=== PATIENT | female | born 1930 | race Caucasian/White ===

== ENCOUNTER 2016-06-01 14:22 | Inpatient (IN) | payer MEDICARE, OTHER ==
[~2016-06-01] VITALS: Ht 157.5 cm; Wt 69.4 kg
[2016-06-01] MEDS ORDERED: NITROGLYCERIN 2% OINT 1 INCH PKT TOPICAL ONE (16:25)
[2016-06-01] MEDS ORDERED: Furosemide 40 MG/4 ML VIAL ONE (16:25)
[2016-06-01] MEDS ORDERED: DUONEB INH ONE (16:39)
[2016-06-01] MEDS ORDERED: LEVOFLOXACIN 500 MG INJ IV ONE (17:46)
[2016-06-01] MEDS ORDERED: ACETAMINOPHEN 325 MG TAB ONE (18:22)
[2016-06-01 18:52] VITALS: BP_SYST 160; RESP 20; TEMP 97.9
[2016-06-01 18:53] VITALS: Ht 157.5 cm; Wt 69.4 kg
[2016-06-01] MEDS ORDERED: Flu Vaccine Quadrivalent 60 MCG/0.5 ML IM.VACC ONE (19:00)
[2016-06-01] MEDS ORDERED: PHARMACY TO DOSE LEVAQUIN IV SCH (19:55)
[2016-06-01] MEDS ORDERED: TRAZODONE 50 MG TAB PO SCH (21:49)
[2016-06-01] MEDS: TRAZODONE 50 MG TAB PO SCH (22:21)
[2016-06-01] MEDS: OXYCODONE/APAP 7.5/325 TAB PO PRN (22:22)
[2016-06-01 23:36] VITALS: BP_SYST 117; RESP 20; TEMP 98.1
[2016-06-02] MEDS: DUONEB INH SCH ×8 (00:50→23:54)
[2016-06-02 03:41] VITALS: BP_SYST 136; RESP 20; TEMP 97.6
[2016-06-02 07:21] VITALS: BP_SYST 150; RESP 18; TEMP 97.8
[2016-06-02] MEDS: OXYCODONE/APAP 7.5/325 TAB PO SCH (07:57)
[2016-06-02] MEDS ORDERED: TRAZODONE 50 MG TAB PO SCH (09:00)
[2016-06-02] MEDS ORDERED: Furosemide 40 MG/4 ML VIAL IV SCH (09:00)
[2016-06-02 10:57] VITALS: BP_SYST 112; RESP 18; TEMP 97.7
[2016-06-02] MEDS: AZITHROMYCIN 250 MG in SODIUM CHLORIDE 0.9% 250 ML IV SCH (12:39)
[2016-06-02 14:44] VITALS: BP_SYST 115; RESP 18; TEMP 98.4
[2016-06-02] MEDS: Furosemide 40 MG/4 ML VIAL IV SCH (16:52)
[2016-06-02] MEDS: CEFTRIAXONE 1 GM in SODIUM CHLORIDE 0.9% 50 ML IV SCH (16:53)
[2016-06-02] MEDS ORDERED: LEVOFLOXACIN 250 MG/50 ML 50 ML IV SCH (18:00)
[2016-06-02 19:12] VITALS: BP_SYST 124; RESP 18; TEMP 98.8
[2016-06-02] MEDS ORDERED: MELATONIN 10 MG PO SCH (21:00)
[2016-06-02] MEDS: Atorvastatin 20 MG TAB PO SCH (21:22)
[2016-06-02] MEDS: METOPROLOL XL 25 MG TAB PO SCH (21:22)
[2016-06-02] MEDS: ASPIRIN EC 81 MG TAB PO SCH (21:22)
[2016-06-02] MEDS: TRAZODONE 50 MG TAB PO SCH (21:22)
[2016-06-02] MEDS: Losartan 25 MG TAB PO SCH (21:22)
[2016-06-02] MEDS: BENZONATATE 100 MG CAP PO PRN (21:33)
[2016-06-03] VITALS (9 sets, daily range): BP systolic 106–146; RESP 16–24; TEMP 98.3–98.8
[2016-06-03] MEDS: DUONEB INH SCH ×5 (05:32→22:57)
[2016-06-03] MEDS: SODIUM CHLORIDE 0.9% FLUSH BAG 500 ML IV SCH (06:04)
[2016-06-03] MEDS ORDERED: MISSING DOSE XX ONE ×2 (08:50→12:45)
[2016-06-03] MEDS: ASPIRIN EC 81 MG TAB PO SCH (08:53)
[2016-06-03] MEDS: Losartan 25 MG TAB PO SCH (08:53)
[2016-06-03] MEDS: METOPROLOL XL 25 MG TAB PO SCH (08:53)
[2016-06-03] MEDS: OXYCODONE/APAP 7.5/325 TAB PO SCH (08:55)
[2016-06-03] MEDS: CEFTRIAXONE 1 GM in SODIUM CHLORIDE 0.9% 50 ML IV SCH (08:56)
[2016-06-03] MEDS: Furosemide 40 MG/4 ML VIAL IV SCH ×2 (08:57→17:42)
[2016-06-03] MEDS ORDERED: AZITHROMYCIN 500 MG in SODIUM CHLORIDE 0.9% 250 ML IV SCH (09:00)
[2016-06-03] MEDS: BENZONATATE 100 MG CAP PO PRN (10:28)
[2016-06-03] MEDS: AZITHROMYCIN 250 MG in SODIUM CHLORIDE 0.9% 250 ML IV SCH (10:28)
[2016-06-03] MEDS ORDERED: DOCUSATE SOD 100 MG CAP PO PRN (12:15)
[2016-06-03] MEDS: OXYCODONE/APAP 7.5/325 TAB PO PRN (15:07)
[2016-06-03] MEDS: SPIRONOLACTONE 25 MG TAB PO SCH (15:07)
[2016-06-03] MEDS: TRAZODONE 50 MG TAB PO SCH (20:10)
[2016-06-03] MEDS: Atorvastatin 20 MG TAB PO SCH (20:10)
[2016-06-04] VITALS (7 sets, daily range): BP systolic 97–132; RESP 18; TEMP 98.2–98.6
[2016-06-04] MEDS: Furosemide 40 MG/4 ML VIAL IV SCH ×3 (00:11→17:51)
[2016-06-04] MEDS: SODIUM CHLORIDE 0.9% FLUSH BAG 500 ML IV SCH (05:59)
[2016-06-04] MEDS: DUONEB INH SCH ×5 (07:06→22:43)
[2016-06-04] MEDS: CEFTRIAXONE 1 GM in SODIUM CHLORIDE 0.9% 50 ML IV SCH (08:43)
[2016-06-04] MEDS: METOPROLOL XL 25 MG TAB PO SCH (08:44)
[2016-06-04] MEDS: ASPIRIN EC 81 MG TAB PO SCH (08:44)
[2016-06-04] MEDS: Losartan 25 MG TAB PO SCH (08:44)
[2016-06-04] MEDS: SPIRONOLACTONE 25 MG TAB PO SCH (08:44)
[2016-06-04] MEDS: OXYCODONE/APAP 7.5/325 TAB PO SCH ×2 (09:00→09:54)
[2016-06-04] MEDS: AZITHROMYCIN 250 MG in SODIUM CHLORIDE 0.9% 250 ML IV SCH (09:44)
[2016-06-04] MEDS: IRON SUCROSE COMPLEX 400 MG in SODIUM CHLORIDE 0.9% 250 ML IV SCH (11:45)
[2016-06-04] MEDS: OXYCODONE/APAP 7.5/325 TAB PO PRN (15:31)
[2016-06-04] MEDS: Atorvastatin 20 MG TAB PO SCH (20:26)
[2016-06-04] MEDS: TRAZODONE 50 MG TAB PO SCH (20:26)
[2016-06-05] MEDS: DUONEB INH SCH ×6 (02:12→22:38)
[2016-06-05 05:00] VITALS: BP_SYST 111; RESP 18; TEMP 97.9
[2016-06-05] MEDS: SODIUM CHLORIDE 0.9% FLUSH BAG 500 ML IV SCH (05:08)
[2016-06-05] MEDS: Furosemide 40 MG/4 ML VIAL IV SCH ×3 (05:35→23:20)
[2016-06-05 07:17] VITALS: BP_SYST 130; RESP 20; TEMP 98.1
[2016-06-05] MEDS: CEFTRIAXONE 1 GM in SODIUM CHLORIDE 0.9% 50 ML IV SCH (10:19)
[2016-06-05] MEDS: BENZONATATE 100 MG CAP PO PRN (10:19)
[2016-06-05] MEDS: METOPROLOL XL 25 MG TAB PO SCH (10:20)
[2016-06-05] MEDS: OXYCODONE/APAP 7.5/325 TAB PO SCH (10:20)
[2016-06-05] MEDS: Losartan 25 MG TAB PO SCH (10:20)
[2016-06-05] MEDS: ASPIRIN EC 325 MG TAB PO SCH (10:22)
[2016-06-05] MEDS: SPIRONOLACTONE 25 MG TAB PO SCH (10:22)
[2016-06-05 10:59] VITALS: BP_SYST 136; RESP 20; TEMP 98.4
[2016-06-05] MEDS: AZITHROMYCIN 250 MG in SODIUM CHLORIDE 0.9% 250 ML IV SCH (11:32)
[2016-06-05] MEDS: NEB-BUDESONIDE 0.5 MG INH SCH ×2 (12:10→19:35)
[2016-06-05] MEDS: NEB-BROVANA 15 MCG/2 ML INH SCH ×2 (12:11→19:35)
[2016-06-05] MEDS ORDERED: BISACODYL EC 5 MG TAB PO PRN (12:15)
[2016-06-05] MEDS ORDERED: POLYETHYLENE GLYCOL 17 GM PACKET PO ONE (12:15)
[2016-06-05] MEDS: IRON SUCROSE COMPLEX 400 MG in SODIUM CHLORIDE 0.9% 250 ML IV SCH (12:49)
[2016-06-05] MEDS: DOCUSATE SOD 100 MG CAP PO SCH ×2 (13:31→20:39)
[2016-06-05 15:04] VITALS: BP_SYST 118; RESP 20; TEMP 98.3
[2016-06-05] MEDS: OXYCODONE/APAP 7.5/325 TAB PO PRN (17:34)
[2016-06-05 19:09] VITALS: BP_SYST 110; RESP 18; TEMP 98
[2016-06-05] MEDS: TRAZODONE 50 MG TAB PO SCH (20:40)
[2016-06-05] MEDS: Atorvastatin 20 MG TAB PO SCH (20:40)
[2016-06-05] MEDS: POLYETHYLENE GLYCOL 17 GM PACKET PO SCH (20:40)
[2016-06-05 22:49] VITALS: BP_SYST 122; RESP 20; TEMP 98.7
[2016-06-06] VITALS (8 sets, daily range): BP systolic 84–132; RESP 18–20; TEMP 97.2–98.6
[2016-06-06] MEDS: SODIUM CHLORIDE 0.9% FLUSH BAG 500 ML IV SCH (05:39)
[2016-06-06] MEDS: NEB-BROVANA 15 MCG/2 ML INH SCH ×2 (06:51→19:18)
[2016-06-06] MEDS: NEB-BUDESONIDE 0.5 MG INH SCH ×2 (06:51→19:18)
[2016-06-06] MEDS: DUONEB INH SCH ×5 (06:52→23:02)
[2016-06-06] MEDS ORDERED: MISSING DOSE XX ONE (09:00)
[2016-06-06] MEDS: METOPROLOL XL 25 MG TAB PO SCH (09:09)
[2016-06-06] MEDS: DOCUSATE SOD 100 MG CAP PO SCH ×2 (09:09→20:10)
[2016-06-06] MEDS: Losartan 25 MG TAB PO SCH (09:09)
[2016-06-06] MEDS: ASPIRIN EC 325 MG TAB PO SCH (09:09)
[2016-06-06] MEDS: SPIRONOLACTONE 25 MG TAB PO SCH (09:09)
[2016-06-06] MEDS: Furosemide 40 MG/4 ML VIAL IV SCH ×3 (09:10→23:17)
[2016-06-06] MEDS: CEFTRIAXONE 1 GM in SODIUM CHLORIDE 0.9% 50 ML IV SCH (09:10)
[2016-06-06] MEDS: OXYCODONE/APAP 7.5/325 TAB PO SCH (09:15)
[2016-06-06] MEDS: OXYCODONE/APAP 7.5/325 TAB PO PRN (20:09)
[2016-06-06] MEDS: POLYETHYLENE GLYCOL 17 GM PACKET PO SCH (20:10)
[2016-06-06] MEDS: TRAZODONE 50 MG TAB PO SCH (20:10)
[2016-06-06] MEDS: Atorvastatin 20 MG TAB PO SCH (20:10)
[2016-06-06] MEDS: BENZONATATE 100 MG CAP PO PRN (20:15)
[2016-06-07 02:32] VITALS: BP_SYST 112; RESP 20; TEMP 97.9
[2016-06-07] MEDS: SODIUM CHLORIDE 0.9% FLUSH BAG 500 ML IV SCH (04:31)
[2016-06-07 07:10] VITALS: BP_SYST 133; RESP 20; TEMP 98.3
[2016-06-07] MEDS: NEB-BROVANA 15 MCG/2 ML INH SCH ×2 (08:09→18:53)
[2016-06-07] MEDS: DUONEB INH SCH ×5 (08:09→22:43)
[2016-06-07] MEDS: NEB-BUDESONIDE 0.5 MG INH SCH ×2 (08:10→18:53)
[2016-06-07] MEDS: Furosemide 40 MG/4 ML VIAL IV SCH ×2 (09:32→17:05)
[2016-06-07] MEDS: CEFTRIAXONE 1 GM in SODIUM CHLORIDE 0.9% 50 ML IV SCH (09:33)
[2016-06-07] MEDS: OXYCODONE/APAP 7.5/325 TAB PO SCH (09:33)
[2016-06-07] MEDS: SPIRONOLACTONE 25 MG TAB PO SCH (09:34)
[2016-06-07] MEDS: DOCUSATE SOD 100 MG CAP PO SCH ×2 (09:34→19:54)
[2016-06-07] MEDS: METOPROLOL XL 25 MG TAB PO SCH (09:34)
[2016-06-07] MEDS: Losartan 25 MG TAB PO SCH (09:34)
[2016-06-07] MEDS: ASPIRIN EC 325 MG TAB PO SCH (09:34)
[2016-06-07 11:37] VITALS: BP_SYST 117; RESP 20; TEMP 98.5
[2016-06-07 15:20] VITALS: BP_SYST 102; RESP 20; TEMP 98.6
[2016-06-07 19:14] VITALS: BP_SYST 134; RESP 20; TEMP 98.6
[2016-06-07] MEDS: Atorvastatin 20 MG TAB PO SCH (19:54)
[2016-06-07] MEDS: TRAZODONE 50 MG TAB PO SCH (19:54)
[2016-06-07] MEDS: POLYETHYLENE GLYCOL 17 GM PACKET PO SCH (19:55)
[2016-06-07] MEDS: OXYCODONE/APAP 7.5/325 TAB PO PRN (19:55)
[2016-06-07 22:20] VITALS: BP_SYST 129; RESP 20; TEMP 98.4
[2016-06-08 03:15] VITALS: BP_SYST 122; RESP 20; TEMP 98.5
[2016-06-08] MEDS: SODIUM CHLORIDE 0.9% FLUSH BAG 500 ML IV SCH (04:41)
[2016-06-08] MEDS: NEB-BROVANA 15 MCG/2 ML INH SCH ×2 (07:11→19:00)
[2016-06-08] MEDS: NEB-BUDESONIDE 0.5 MG INH SCH ×2 (07:11→19:00)
[2016-06-08] MEDS: DUONEB INH SCH ×4 (07:11→19:00)
[2016-06-08 07:13] VITALS: BP_SYST 143; RESP 18; TEMP 98
[2016-06-08] MEDS: OXYCODONE/APAP 7.5/325 TAB PO SCH (08:14)
[2016-06-08] MEDS: DOCUSATE SOD 100 MG CAP PO SCH (08:16)
[2016-06-08] MEDS: Losartan 25 MG TAB PO SCH (08:16)
[2016-06-08] MEDS: METOPROLOL XL 25 MG TAB PO SCH (08:17)
[2016-06-08] MEDS: ASPIRIN EC 325 MG TAB PO SCH (08:17)
[2016-06-08] MEDS: SPIRONOLACTONE 25 MG TAB PO SCH (08:17)
[2016-06-08] MEDS: Furosemide 40 MG TAB PO SCH ×2 (08:17→16:44)
[2016-06-08] MEDS: CEFTRIAXONE 1 GM in SODIUM CHLORIDE 0.9% 50 ML IV SCH (09:36)
[2016-06-08 12:13] VITALS: BP_SYST 117; RESP 18; TEMP 97.9
[2016-06-08] MEDS: BENZONATATE 100 MG CAP PO PRN (14:29)
[2016-06-08 15:14] VITALS: BP_SYST 128; RESP 18; TEMP 98.1
[2016-06-08 17:19] VITALS: BP_SYST 146; RESP 18; TEMP 98
[2016-06-08 17:36] VITALS: BP_SYST 146; RESP 18; TEMP 98
[2016-06-09] MEDS ORDERED: ASPIRIN 81 MG CHEW TAB PO SCH (09:00)
== END 2016-06-08 19:55 | DRG 291 ==
LOC: ENRESERVDT → ENRESERVTM → ER 14:22 → EMR 17:18 → ENPENDDIS 17:18 → 4NT 18:39 → PCU2 06-02 13:29 → 4NT 06-04 14:52
PROVIDERS: ADMIT Family Medicine; ATTEND Family Medicine
CPT/HCPCS: 36415; 71010; 71020; 80048; 80053; 80061; 81003; 82553; 82947; 83036; 83540; 83605; 83735; 83880; 84466; 84484; 85014; 85018; 85025; 85379; 87040; 87071; 87088; 93005; 93306; 93970; 94640; 94762; 94799; 96365; 96375; 99222; 99232; 99233; 99239